=== PATIENT | female | born 1985 | race Hispanic/Latino ===

== ENCOUNTER 2022-07-11 20:55 | Day surgery (SDC) | payer SELFPAY ==
[2022-07-11] MEDS ORDERED: hydrALAZINE 20 MG/ML VIAL SLOW IVP PRN (21:50)
[2022-07-11 22:12] VITALS: BMI 18.9
[2022-07-11 22:34] LABS: Bilirubin Neg (Negative); Blood, Urine 50 (Negative); Clarity Slightly Cloudy (Clear); Glucose, Urine (Dipstick) >=1000 mg/dL (Negative); Ketone, Urine 15 mg/dL (Negative); Leukocyte Negative (Negative); Nitrite Negative (Negative); Protein, Urine (Dipstick) Negative (Neg-Trace); Urobilinogen Normal mg/dL (Less than 2)
[2022-07-11 22:48] LABS: Bacteria/HPF Rare-Few HPF (None Seen); RBC/HPF 0-3 HPF (0-3); Squamous Epithelial 0-3 HPF (0-3); WBC/HPF 0-3 HPF (0-3)
== END 2022-07-12 00:28 | disposition home or self-care (01) ==
LOC: CSHLD/OP 20:55
PROVIDERS: ATTEND Family Medicine
DX: O34.12 Maternal care for benign tumor of corpus uteri, second trimester (principal); D25.9 Leiomyoma of uterus, unspecified; O09.512 Supervision of elderly primigravida, second trimester; Z3A.20 20 weeks gestation of pregnancy
CPT/HCPCS: 76815; 81003; 81015; 99283

== ENCOUNTER 2022-09-04 09:11 | Outpatient (CLI) | payer OTHER | END 2022-09-04 09:12 | disposition home or self-care (01) | LOC: CSHULT 09:11 | PROVIDERS: ATTEND Family Medicine | DX: O09.513 Supervision of elderly primigravida, third trimester (principal); Z3A.28 28 weeks gestation of pregnancy | CPT/HCPCS: 76805 ==